=== PATIENT | female | born 1990 | race Caucasian/White ===

== ENCOUNTER 2024-01-13 16:15 | Observation (INO) | payer OTHER ==
[2024-01-13] MEDS: LACTATED RINGERS 1,000 ML IV SCH ×3 (16:51→19:45)
[2024-01-13 17:19] LABS: Basophils % (A) 0 %; Eosinophils # (A) 0.1 k/uL (0-0.7); Eosinophils % (A) 2 %; HCT 37.6 % (34.0-46.0); HGB 13.1 gm/dL (11.4-16.0); Lymphocytes # (A) 1.4 k/uL (1.0-4.8); Lymphocytes % (A) 17 %; MCH 32.6 pg (25.0-35.0); MCV 93.2 fL (80.0-100.0); Mean Platelet Volume 7.2; Monocytes # (A) 0.3 k/uL (0-1.0); Monocytes % (A) 3 %; Neutrophils # (A) 6.4 k/uL (1.3-7.7); Neutrophils % (A) 77 %; Platelet Count 236 k/uL (150-450); RBC 4.03 m/uL (3.80-5.40); RDW 13.2 % (11.5-15.5); WBC 8.3 k/uL (3.8-10.6)
[2024-01-13] MEDS: ONDANSETRON 4 MG/2 ML VIAL IVP STA (17:33)
[2024-01-13 17:41] LABS: ALT 102 U/L (4-34); AST 41 U/L (14-36); African American GFR (CKD) >90 (>60 ml/min/1.73 sqM); Albumin 4.4 g/dL (3.5-5.0); Alkaline Phosphatase 101 U/L (38-126); Anion Gap 10 mmol/L; Blood Urea Nitrogen 10 mg/dL (7-17); Calcium 9.8 mg/dL (8.4-10.2); Carbon Dioxide 20 mmol/L (22-30); Chloride 108 mmol/L (98-107); Glucose 88 mg/dL (74-99); Non-African American GFR(CKD) >90 (>60 ml/min/1.73 sqM); Potassium 4.1 mmol/L (3.5-5.1); Sodium 138 mmol/L (137-145); Total Bilirubin 0.8 mg/dL (0.2-1.3); Total Protein 7.2 g/dL (6.3-8.2)
[2024-01-13 19:06] LABS: Appearance,Urine Clear (Clear); Bilirubin,Urine Negative (Negative); Blood,Urine Negative (Negative); Color,Urine Colorless; Glucose,Urine (UA) Negative (Negative); Ketones,Urine 2+ (Negative); Leukocyte Esterase,Urine Negative (Negative); Nitrite,Urine Negative (Negative); PH, Urine 6.5 (5.0-8.0); Protein,Urine Negative (Negative); Specific Gravity,Urine 1.007 (1.001-1.035); Urobilinogen,Urine <2.0 mg/dL (<2.0)
[2024-01-13] MEDS ORDERED: PROMETHAZINE SUPPOSITORY 12.5 MG SUPP RECTAL PRN (19:39)
[2024-01-13] MEDS: diphenhydrAMINE 50 MG/ML 1 ML VIAL IVP PRN (20:45)
[2024-01-14] MEDS: ONDANSETRON 4 MG/2 ML VIAL IVP PRN (03:12)
[2024-01-14 07:26] LABS: ALT 69 U/L (4-34); AST 29 U/L (14-36)
[2024-01-14 08:26] VITALS: RESP 14; TEMP 98
--- NOTE | 2024-01-14 12:13 | P.HPOB ---
History of Present Illness H&P Date: 01/14/24 Chief Complaint: IUP 10 weeks, n/v of 33 yo at 10 weeks of gestation. She was seen in the office yesterday for her new OB appointment. Upon questioning she noted multiple days of vomiting and multiple visits to [facility] for fluid hydration. Patient states she typically receives a couple bags of fluids which will last her a couple days and then she represents for fluid hydration secondary to increased nausea and vomiting. Vital signs were stable in the office. Given extensive nausea and vomiting patient was sent to OB triage for IV hydration and lab workup. Review of Systems Constitutional: Reports fatigue, Denies chills, Denies fever Ears, nose, mouth and throat: Denies headache Cardiovascular: Denies leg edema Respiratory: Denies dyspnea Gastrointestinal: Denies constipation, Denies diarrhea, Denies nausea, Denies vomiting Genitourinary: Reports Past Medical History History of Any Multi-Drug Resistant Organisms: None Reported Past Surgical History: Cholecystectomy, Orthopedic Surgery, Tonsillectomy Additional Past Surgical History / Comment(s): 1999 and 2000 right hip surgery - pins placed in 1999, pins removed in 2000. 2008 cholecystectomy Past Anesthesia/Blood Transfusion Reactions: No Reported Reaction Past Psychological History: Anxiety, Depression Smoking Status: Never smoker Past Alcohol Use History: None Reported Past Drug Use History: None Reported - Past Family History Mother Family Medical History: Hypertension Medications and Allergies Home Medications Medication Instructions Recorded Confirmed Type No Known Home Medications 01/13/24 01/13/24 History Allergies Allergy/AdvReac Type Severity Reaction Status Date / Time No Known Allergies Allergy Verified 01/13/24 16:40 Exam Osteopathic Statement: *. No significant issues noted on an osteopathic structural exam other than those noted in the History and Physical/Consult. Vital Signs Temp Pulse Pulse Resp BP BP Pulse Ox 01/14/24 08:00 98.0 F 71 14 122/75 01/14/24 03:07 97.9 F 70 16 113/70 98 01/14/24 00:00 97.8 F 76 16 104/65 98 01/13/24 20:00 98.2 F 90 16 132/82 98 01/13/24 16:40 97 F L 75 16 115/69 99 Intake and Output 01/13/24 01/14/24 01/14/24 22:59 06:59 14:59 Other: # Voids 1 1 Weight 83.915 kg Targeted physical exam is performed, ill-appearing female in no acute distress, breathing is nonlabored, heart has a regular rate and rhythm, abdomen is soft and nontender heart tones were obtained in the office today Results Result Diagrams: 01/13/24 16:55 01/13/24 16:55 Abnormal Lab Results - Last 24 Hours (Table) 01/13/24 01/13/24 01/14/24 Range/Units 16:55 18:50 07:02 Chloride 108 H (98-107) mmol/L Carbon Dioxide 20 L (22-30) mmol/L Creatinine 0.46 L (0.52-1.04) mg/dL AST 41 H (14-36) U/L ALT 102 H 69 H (4-34) U/L Urine Ketones 2+ H (Negative) Assessment and Plan (1) 10 weeks gestation of Current Visit: Yes Status: Acute Code(s): Z3A.10 - 10 WEEKS GESTATION OF SNOMED Code(s): 53652816 (2) Nausea & vomiting Current Visit: Yes Status: Acute Code(s): R11.2 - NAUSEA WITH VOMITING, UNSPECIFIED SNOMED Code(s): 88247318 Plan: 33-year-old G1, P0 at 10 weeks of gestation that presented from the office for nausea and vomiting of . Patient is started on IV hydration, urine and blood work is ordered. Patient has been taking Zofran as needed, Phenergan suppositories are encou raged. Will monitor and assess need for observation and fluid hydration through the night.
--- NOTE | 2024-01-14 12:13 | P.DS ---
Providers Date of admission: 01/13/24 19:33 Expected date of discharge: 01/14/24 Attending physician: Clair Barksdale Primary care physician: Stated None - Discharge Diagnosis(es) (1) 10 weeks gestation of Current Visit: Yes Status: Acute (2) Nausea & vomiting Current Visit: Yes Status: Acute Hospital Course: 33-year-old G1, P0 at approximately 10 weeks of gestation presented from the office for increased nausea and vomiting. Patient was unable to keep anything down. Patient has been seen multiple times in [place] [facility] for IV hydration. Patient states it helps for a few days and then she ends up going back for more hydration. Patient states Zofran is working reasonably but she will have breakthrough nausea and vomiting. Patient was hydrated through the night and is feeling better this morning. Patient is tolerating toast with Zofran. Patient states Phenergan suppositories are not helping as well as the Zofran. Patient's labs initially showed elevated liver function test which have since normalized this morning. Patient feels comfortable going home with oral Zofran scheduled 3 times daily. Patient has follow-up appointment next week in the office. Patient Condition at Discharge: Good Plan - Discharge Summary New Discharge Prescriptions: No Action No Known Home Medications Discharge Medication List No Known Home Medications 01/13/24 [History] Follow up Appointment(s)/Referral(s): Clair Barksdale DO [Doctor of Osteopathic Medicine] - 1 Week Activity/Diet/Wound Care/Special Instructions: Patient is encouraged to continue her Zofran 3 times a day. Brat diet bland meals are encouraged. Increase hydration as tolerated. Discharge Disposition: HOME SELF-CARE
--- NOTE | 2024-01-15 10:09 | P.MSEPDOC ---
Presenting Problems - Arrival Data Date of Arrival on Unit: 01/13/24 Time of Arrival on Unit: 16:15 Mode of Transport: Wheelchair - Complaint OB-Reason for Admission/Chief Complaint: Hyperemesis Medical History - Information : 4 Para: 0 Term: 0 : 0 Abortions: Spontaneous or Elective: 3 Number of Living Children: 0 - Gestational Age Gestational Age by AVNIASH (wks/days): 10 Weeks and 3 Days Review of Systems - Review of Systems Constitutional: No problems Breast: No problems ENT: No problems Cardiovascular: No problems Respiratory: No problems Gastrointestinal: No problems Genitourinary: No problems Musculoskeletal: No problems Neurological: Dizziness Skin: No problems Vital Signs - Temperature Temperature: 98.0 F Temperature Source: Oral - Pulse Right Apical Pulse Rate: 75 Pulse Assessment Method: Automatic Cuff Pulse Oximetery Pulse Rate: 71 Pulse Assessment Method: Automatic Cuff - Respirations Respiratory Rate: 14 Oxygen Delivery Method: Room Air - Blood Pressure Right Arm Sitting Blood Pressure: 115/69 Blood Pressure Mean: 84 Blood Pressure Source: Automatic Cuff Left Arm Blood Pressure: 122/75 Blood Pressure Mean: 90 Blood Pressure Source: Automatic Cuff Physician Notification - Physician Notified Physician Notified Date: 01/13/24 Physician Notified Time: 16:15 Physician: Clair Barksdale New Order Received: Yes - Notification Comment Comment: written orders for iv hydration, cbc, cmp, ua Maternal Triage Index - Maternal Triage Index Presenting for scheduled procedure w/no complaint: No - Stat/Priority 1 Stat Priority 1: No - Urgent/Priority 2 Urgent Priority 2: Yes Provider Notified: Clair Barksdale Provider Notified Time: 16:15 Criteria Met for Priority 2: 10.3 week hyperemesis sent with script for iv hydration Disposition - Disposition OB Disposition: Triage Discharge Date: 01/14/24 Discharge Time: 12:30 I agree with the RN Medical Screening Exam: Yes Case reviewed; plan agreed upon as documented in EMR&OBIX.: Yes Diagnosis: RELATED CONDITIONS, UNSPECIFIED, FIRST TRIMESTER
[2024-01-15 10:29] VITALS: BP 115/69; PULSE 75
== END 2024-01-14 12:47 | disposition home or self-care (01) ==
LOC: FBPOP 16:15 → 4FBP 19:33
PROVIDERS: ADMIT Obstetrics & Gynecology Obstetrics; ATTEND Obstetrics & Gynecology Obstetrics
DX: O21.9 Vomiting of pregnancy, unspecified (principal); Z3A.10 10 weeks gestation of pregnancy; R74.01 Elevation of levels of liver transaminase levels
CPT/HCPCS: 96376; 96361; 96374; 96375; 36415; 80053; 84450; 84460; 85025; 81003; G0378 ×2; G0379; J1200; J2405 ×2

== ENCOUNTER 2024-06-28 11:12 | Outpatient (CLI) | payer OTHER | END 2024-06-28 12:15 | disposition home or self-care (01) | LOC: FBPOP 11:12 | PROVIDERS: ATTEND Obstetrics & Gynecology Obstetrics | CPT/HCPCS: 59025; 99213 ==

== ENCOUNTER 2024-07-15 13:50 | Observation (INO) | payer OTHER ==
[2024-07-15] MEDS ORDERED: LABETALOL 100 MG TAB ONE ×2 (16:38→23:59)
[2024-07-15] MEDS ORDERED: diphenhydrAMINE 50 MG CAP ONE (20:44)
[2024-07-16] MEDS ORDERED: diphenhydrAMINE 50 MG CAP ONE (03:47)
[2024-07-16] MEDS ORDERED: CALCIUM CARBONATE 500 MG CHEWABLE PO ONE (03:47)
[2024-07-16] MEDS ORDERED: LABETALOL 100 MG TAB ONE (08:51)
== END 2024-07-16 11:15 | disposition home or self-care (01) ==
LOC: INTOOBSV 13:50 → 4FBP 13:50 → UNDODISIN 07-16 11:20
PROVIDERS: ADMIT Obstetrics & Gynecology Obstetrics; ATTEND Obstetrics & Gynecology Obstetrics
CPT/HCPCS: 59025; 99215; 99285

== ENCOUNTER 2024-07-22 06:00 | Inpatient (IN) | payer OTHER ==
[2024-07-22] MEDS ORDERED: TERBUTALINE 1 MG/ML VIAL SQ PRN (06:36)
[2024-07-22] MEDS ORDERED: OXYTOCIN 10 UNIT/ML 1 ML VIAL IM PRN (06:36)
[2024-07-22] MEDS ORDERED: CARBOPROST TROMETHAMINE 250 MCG/ML 1 ML AMP IM PRN (06:36)
[2024-07-22] MEDS ORDERED: miSOPROStoL 200 MCG TAB RECTAL PRN (06:36)
[2024-07-22] MEDS ORDERED: miSOPROStoL 200 MCG TAB PO PRN (06:36)
[2024-07-22] MEDS ORDERED: TRANEXAMIC 1,000 MG/100ML-NACL 1,000 MG in EMPTY BAG 1 BAG IV PRN (06:36)
[2024-07-22] MEDS ORDERED: LIDOCAINE 0.5% (PF) 5 MG/ML (50 ML SDV) SQ PRN (06:36)
[2024-07-22] MEDS ORDERED: METHYLERGONOVINE 0.2 MG/ML 1 ML AMP IM PRN (06:36)
[2024-07-22 06:51] LABS: Basophils % (A) 0 %; Eosinophils # (A) 0.2 k/uL (0-0.7); Eosinophils % (A) 2 %; HCT 31.2 % (34.0-46.0); HGB 10.5 gm/dL (11.4-16.0); Hypochromasia Slight; Lymphocytes # (A) 1.7 k/uL (1.0-4.8); Lymphocytes % (A) 16 %; MCHC 33.6 g/dL (31.0-37.0); MCV 95.4 fL (80.0-100.0); Mean Platelet Volume 7.2; Monocytes # (A) 0.5 k/uL (0-1.0); Monocytes % (A) 5 %; Neutrophils # (A) 7.8 k/uL (1.3-7.7); Neutrophils % (A) 74 %; Platelet Count 290 k/uL (150-450); Poikilocytosis Slight; RBC 3.27 m/uL (3.80-5.40); RDW 15.6 % (11.5-15.5); WBC 10.5 k/uL (3.8-10.6)
[2024-07-22] MEDS: LACTATED RINGERS 1,000 ML IV SCH (06:58)
[2024-07-22] MEDS: OXYTOCIN 30 UNITS/500 ML NS 30 UNIT in SALINE 1 500ML.BAG IV SCH (07:29)
[2024-07-22] MEDS ORDERED: NALBUPHINE 10 MG/ML (10 ML MDV) IV PRN (08:15)
[2024-07-22] MEDS ORDERED: fentaNYL (PF) 50 MCG/ML 5 ML AMP ONE (10:46)
[2024-07-22] MEDS ORDERED: ROPIVACAINE 5 MG/ML 30 ML VIAL ONE (10:46)
[2024-07-22] MEDS ORDERED: SODIUM CHLORIDE 0.9% 250 ML BAG ONE (10:46)
--- NOTE | 2024-07-22 14:31 | P.PROBDLV ---
Vaginal Delivery Note - . Vaginal Delivery Note: Findings viable female delivered in occiput posterior presentation at 1411, weight of 6 pounds 7.4 ounces. 34-year-old 4 para 0-0-3-0 that presented to labor and delivery at 37- 2/7 weeks for induction of labor secondary to gestational hypertension and in creasing urticaria. Patient is using labetalol to 100 mg twice daily for blood pressure control. Patient was admitted and Pitocin induction of labor was begun. Patient underwent amniotomy and clear fluid was obtained. Patient made progress to 3 cm and did request epidural. Epidural was placed without difficulty by the anesthesia department. Patient made good progress toward complete dilation. Once patient was noted to be completely dilated she began pushing and had a normal spontaneous vaginal delivery of a viable female in occiput posterior presentation at 1411, weight of 6 pounds 7.4 ounces, Apgars of 9 and 10 at 1 and 5 minutes respectively. After 2-minute delay the umbilical cord was doubly clamped and cut and the placenta was delivered spontaneously intact with a three-vessel cord being noted. Inspection the patient's vaginal vault secondary midline laceration was appreciated. The laceration was instilled with lidocaine and repaired in the usual fashion with 3-0 Rapide. Uterus was noted to be firm and below the umbilicus. Laceration was inspected and hemostasis was noted. The bladder was drained for approximately 100 cc of clear yellow urine after delivery. Rectal exam was completed and normal rectal mucosa with no defects was appreciated. All counts found to be correct x 2. Patient and infant tolerated delivery well and are resting comfortably.
--- NOTE | 2024-07-22 14:31 | P.HPOB ---
History of Present Illness H&P Date: 07/22/24 Chief Complaint: IUP @ 37 2/7 weeks, gestational htn 34 yo at 37 3/7 weeks that presents for inuction of labor secondary to gestational htn, on labetalol. She has been struggling with urticaria and presented to labor and delivery last week. LFTs were normal along with pre e labs, but her BP remain ed elevated and she was placed on labetalol. Bp hve been improved on po labetalol. she is noting good FM, occ ctx. she is struggling with high anxiety, regarding delivery. On blood work blood type A pos, rubella non immune, HBSag neg, HIV neg, RPR neg, GBS neg. Review of Systems Constitutional: Denies chills, Denies fatigue, Denies fever Ears, nose, mouth and throat: Denies headache Cardiovascular: Reports edema Respiratory: Denies dyspnea Gastrointestinal: Reports nausea, Reports vomiting Genitourinary: Reports Integumentary: Reports pruritus Past Medical History History of Any Multi-Drug Resistant Organisms: None Reported Past Surgical History: Cholecystectomy, Orthopedic Surgery, Tonsillectomy Additional Past Surgical History / Comment(s): 1999 and 2000 right hip surgery - pins placed in 1999, pins removed in 2000. 2008 cholecystectomy Past Anesthesia/Blood Transfusion Reactions: No Reported Reaction Past Psychological History: Anxiety, Depression Smoking Status: Never smoker Past Alcohol Use History: None Reported Past Drug Use History: None Reported - Past Family History Mother Family Medical History: Hypertension Medications and Allergies Home Medications Medication Instructions Recorded Confirmed Type Labetalol [Trandate] 1 tab PO BID 07/22/24 07/22/24 History Ondansetron [Zofran] 4 mg PO Q12HR PRN 07/22/24 07/22/24 History Scopolamine [Scopolamine 1 MG/72 1 patch TRANSDERM DAILY 07/22/24 07/22/24 History HR patch] ursodioL [Ursodiol] 300 mg PO DAILY 07/22/24 07/22/24 History Allergies Allergy/AdvReac Type Severity Reaction Status Date / Time No Known Allergies Allergy Verified 01/13/24 16:40 Exam Osteopathic Statement: *. No significant issues noted on an osteopathic structural exam other than those noted in the History and Physical/Consult. Intake and Output 07/21/24 07/22/24 07/22/24 22:59 06:59 14:59 Other: Weight 86.183 kg - OBG Physical Exam Abdomen: gravid Cervix: 1-2/90/-2 amniotomy preformed and clear fluid is obtained Results Result Diagrams: 07/22/24 06:40 Abnormal Lab Results - Last 24 Hours (Table) 07/22/24 Range/Units 06:40 RBC 3.27 L (3.80-5.40) m/uL Hgb 10.5 L (11.4-16.0) gm/dL Hct 31.2 L (34.0-46.0) % RDW 15.6 H (11.5-15.5) % Neutrophils # 7.8 H (1.3-7.7) k/uL Assessment and Plan (1) Term Current Visit: Yes Status: Acute Code(s): Z34.90 - ENCNTR FOR SUPRVSN OF NORMAL , UNSP, UNSP TRIMESTER SNOMED Code(s): 86352664 (2) Gestational HTN Current Visit: Yes Status: Acute Code(s): O13.9 - GESTATIONAL HTN W/O SIGNIFICANT PROTEINURIA, UNSP TRIMESTER SNOMED Code(s): 49963854 (3) Urticaria Current Visit: Yes Status: Acute Code(s): L50.9 - URTICARIA, UNSPECIFIED SNOMED Code(s): 649889606 Plan: at 37 2/7 weeks that presents for induction of labor secondary to gestational htn. BP well controlled on labetalol. Patient is admitted to labor and delivery and pitocin induction of labor is begun. options for analgesia are reviewed. she will consider.
[2024-07-22] MEDS ORDERED: SIMETHICONE 80 MG CHEWABLE PO PRN (15:55)
[2024-07-22] MEDS ORDERED: HYDROCORTISONE 2.5% RECTAL CREAM 30 GM TUBE RECTAL PRN (15:55)
[2024-07-22] MEDS ORDERED: diphenhydrAMINE 25 MG CAP PO PRN (15:55)
[2024-07-22] MEDS ORDERED: diphenhydrAMINE 50 MG CAP PO PRN (15:55)
[2024-07-22] MEDS ORDERED: BENZOCAINE/MENTHOL SPRAY 1 GM/SPRAY AEROSOL TOPICAL PRN (15:55)
[2024-07-22] MEDS ORDERED: ZOLPIDEM 5 MG TAB PO PRN (15:55)
[2024-07-22] MEDS: IBUPROFEN 600 MG TAB PO SCH (16:49)
[2024-07-23] MEDS: SENNOSIDES-DOCUSATE SODIUM 1 EACH TAB PO SCH (01:12)
[2024-07-23] MEDS: ACETAMINOPHEN TAB 325 MG TAB PO PRN (04:54)
[2024-07-23 07:55] LABS: Basophils % (A) 0 %; Eosinophils # (A) 0.1 k/uL (0-0.7); Eosinophils % (A) 1 %; HCT 28.1 % (34.0-46.0); HGB 9.4 gm/dL (11.4-16.0); Hypochromasia Slight; Lymphocytes # (A) 1.7 k/uL (1.0-4.8); Lymphocytes % (A) 12 %; MCH 31.9 pg (25.0-35.0); MCHC 33.5 g/dL (31.0-37.0); MCV 95.4 fL (80.0-100.0); Mean Platelet Volume 7.5; Monocytes # (A) 0.6 k/uL (0-1.0); Monocytes % (A) 4 %; Neutrophils # (A) 11.2 k/uL (1.3-7.7); Neutrophils % (A) 81 %; Platelet Count 289 k/uL (150-450); Poikilocytosis Slight; RBC 2.95 m/uL (3.80-5.40); RDW 15.6 % (11.5-15.5); WBC 13.7 k/uL (3.8-10.6)
[2024-07-23 08:16] VITALS: RESP 18
--- NOTE | 2024-07-23 10:38 | P.PNOBGVD ---
Subjective - Subjective Principal diagnosis: day #1 Interval history: Patient is doing okay . She is noting pain with walking, she states the pain is in her bilateral groin right greater than left. She is able to ambulate with discomfort. She is voiding without difficulty. Her lochia is noted to be minimal to moderate. She is bottlefeeding. She does have a history of surgery on her right hip and that is the side that is worse for pain with ambulation Patient reports: Reports appetite normal, Reports voiding normally, Reports pain well controlled Bim: doing well Objective - Latest Vital Signs Latest vital signs: Vital Signs Temp Pulse Resp BP Pulse Ox 07/23/24 08:00 98.3 F 91 18 139/82 98 07/23/24 00:00 97.7 F 95 16 117/75 97 07/22/24 20:00 98.3 F 108 H 17 134/76 97 07/22/24 16:20 97.8 F 109 H 18 130/70 07/22/24 16:05 114 H 18 129/77 07/22/24 15:50 106 H 18 134/86 07/22/24 15:35 108 H 18 135/84 07/22/24 15:20 109 H 18 133/79 07/22/24 15:05 108 H 18 143/82 07/22/24 14:50 120 H 16 132/88 07/22/24 14:35 108 H 16 132/88 07/22/24 14:20 98.1 F 111 H 16 120/83 100 Intake and Output 07/22/24 07/23/24 07/23/24 22:59 06:59 14:59 Output Total 280 Balance -280 Output: Output, Quantitative 280 Blood Loss Other: # Voids 1 1 - Exam Extremities: Present: normal, edema Abdomen: Present: normal appearance, soft Uterus: Present: normal, firm - Labs Labs: Abnormal Lab Results - Last 24 Hours (Table) 07/23/24 Range/Units 07:20 WBC 13.7 H (3.8-10.6) k/uL RBC 2.95 L (3.80-5.40) m/uL Hgb 9.4 L (11.4-16.0) gm/dL Hct 28.1 L (34.0-46.0) % RDW 15.6 H (11.5-15.5) % Neutrophils # 11.2 H (1.3-7.7) k/uL Assessment and Plan (1) Term Current Visit: Yes Status: Acute Code(s): Z34.90 - ENCNTR FOR SUPRVSN OF NORMAL , UNSP, UNSP TRIMESTER SNOMED Code(s): 44584482 (2) Gestational HTN Current Visit: Yes Status: Acute Code(s): O13.9 - GESTATIONAL HTN W/O SIGNIFICANT PROTEINURIA, UNSP TRIMESTER SNOMED Code(s): 69836076 (3) Urticaria Current Visit: Yes Status: Acute Code(s): L50.9 - URTICARIA, UNSPECIFIED SNOMED Code(s): 651016128 (4) Status post normal vaginal delivery Current Visit: Yes Status: Acute Code(s): WOP2640 - SNOMED Code(s): 687785114 (5) Occiput posterior presentation of fetus Current Visit: Yes Status: Acute Code(s): O64.0XX0 - OBSTRUCTED LABOR DUE TO INCMPL ROTATION OF HEAD, UNSP SNOMED Code(s): 59344321 Plan: Overall patient is doing well . Will change pain medications given her increase in hip pain. If she does well overnight anticipate discharge home tomorrow.
[2024-07-23] MEDS: CYCLOBENZAPRINE 10 MG TAB PO SCH (11:01)
[2024-07-23] MEDS: HYDROcodone/APAP 5-325MG 1 EACH TAB PO PRN ×2 (12:13→17:04)
--- NOTE | 2024-07-23 17:44 | XR ---
EXAMINATION TYPE: XR Hip RT and AP Pelvis DATE OF EXAM: 07/23/2024 5:19 PM CLINICAL INDICATION: Female, 34 years old with history of Right hip pain following delivery of ; [facility] COMPARISON: None. TECHNIQUE: XR Hip RT and AP Pelvis; hip was examined in the frontal and lateral projections and a AP pelvis. FINDINGS: No evidence for acute process, joint dislocation or significant soft tissue swelling. Severe degeneration change and deformity of the bilateral femoral neck/head. Mild osteophyte reformat ion the superior acetabulum present bilaterally. IMPRESSION: 1. No acute process. 2. Cam deformities of the bilateral femurs with mild degeneration.
[2024-07-24 08:59] VITALS: BP 144/90; PULSE 94; TEMP 97.7
--- NOTE | 2024-07-24 09:30 | P.CNOR ---
History of Present Illness - [facility] Consult date: 07/24/24 Consult reason: joint pain History of present illness: Patient is a very pleasant 34-year-old female who is having severe right hip pain. She was admitted to the hospital for delivery of her first child and underwent an uncomplicated vaginal delivery 2 days ago. The mother and the baby are otherwise doing well. The patient has history of right hip issues. When she was 10 years old she had a slipped capital femoral epiphysis and underwent surgical intervention for this. 1 year later she had the hardware removed from her right hip. Over the past 24 years she has been doing fairly well with this she weightbears as tolerated and does regular activities. She has certain positions that give her issues as she is not able to ride a horse or a JetSki. She has some times when she tries to internally rotate her hip that she has soreness and pain but this is not usually long-lasting. During delivery she had a spinal epidural and underwent prolonged delivery. Once the spinal anesthetic wore off she had significant pain at her right hip. The pain is circumferential around her hip primarily to the anterior aspect and laterally. She has pain whenever bearing weight. She has pain whenever trying to rotate and flex her hip. She denies any numbness tingling. She denies any weakness. She denies any other recent problems. 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 Some history of right hip soreness with not requiring medication or limitations other than certain activities such as jet skiing or horseback riding Past Medical History Additional Past Medical History / Comment(s): Right hip slipped capital femoral epiphysis with surgery and subsequent removal of the hardware in year 1999. Some history of anxiety History of Any Multi-Drug Resistant Organisms: None Reported Past Surgical History: Cholecystectomy, Orthopedic Surgery, Tonsillectomy Additional Past Surgical History / Comment(s): 1999 and 2000 right hip surgery - pins placed in 1999, pins removed in 2000. 2008 cholecystectomy Past Anesthesia/Blood Transfusion Reactions: No Reported Reaction Past Psychological History: Anxiety, Depression Smoking Status: Never smoker Past Alcohol Use History: None Reported Past Drug Use History: None Reported - Past Family History Mother History Unknown: Yes Family Medical History: Hypertension Medications and Allergies Home Medications Medication Instructions Recorded Confirmed Type Labetalol [Trandate] 1 tab PO BID 07/22/24 07/22/24 History Ondansetron [Zofran] 4 mg PO Q12HR PRN 07/22/24 07/22/24 History Scopolamine [Scopolamine 1 MG/72 1 patch TRANSDERM DAILY 07/22/24 07/22/24 History HR patch] ursodioL [Ursodiol] 300 mg PO DAILY 07/22/24 07/22/24 History Cyclobenzaprine [Flexeril] 10 mg PO TID PRN #30 tab 07/24/24 Rx HYDROcodone/APAP 5-325MG [[place] 1 - 2 tab PO Q6HR PRN #56 tab 07/24/24 Rx 5-325] predniSONE 10 mg PO DAILY 12 Days #24 tab 07/24/24 Rx Allergies Allergy/AdvReac Type Severity Reaction Status Date / Time No Known Allergies Allergy Verified 01/13/24 16:40 Physical Examination Osteopathic Statement: *. No significant issues noted on an osteopathic structural exam other than those noted in the History and Physical/Consult. - Hip right Gait: antalgic, other Tenderness with palpation: none Pain with motion: internal rotation and hip flexion (In her right hip she has well-healed incision. She has pain with flexion but is she is able to flex to 90 degrees. She is able to lift her leg up off the bed independently but has pain in her hip with this. She has pain with internal rotation. There is no significant pain with external rotation ), other (She can move her hip into external rotation slowly without pain but has pain with internal rotation beyond neutral. She has sustained dorsiflexion plantarflexion EHL intact. Distal neurovascular status intact. Calves and thighs soft nontender) Results - Labs Labs: H & H 07/22/24 07/23/24 Range/Units 06:40 07:20 Hgb 10.5 L 9.4 L (11.4-16.0) gm/dL Hct 31.2 L 28.1 L (34.0-46.0) % Result Diagrams: 07/23/24 07:20 - Diagnostic results Hip x-ray: report reviewed, image reviewed (Imaging of the pelvis and right hip show chronic dysplasia of the right femoral head. There is flattening with osteophytic spurring and decreased joint space. There is evidence of prior surgery. 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 She had somewhat of a prolonged delivery and had subsequent acute right hip pain. The patient has history of right hip slipped capital femoral epiphysis and has been developing chronic dysplasia and arthritic change at her right hip over the years. She has had some limitations in her overall motion and certain activities but otherwise functions quite well. Certainly she had exacerbation of her right hip due to her positioning during her delivery while under spinal anesthetic. The patient does not appear to have any acute fracture or dislocation or process at her right hip from a bony signs but certainly has an exacerbation of her arthritic change. It is okay for the patient to weight-bear as tolerated on her right hip and lower extremity. She has been having some improvement over the past 2 days but is still requiring pain medication. We will supply her with a short course of pain medication and muscle relaxer. I think that she can do well with a short course of oral steroid as well. She is not breast-feeding and given the sev erity of her pain I think a short course of steroid may help increase her mobility most quickly. I will go ahead and prescribe a pain medication for this week as well as a muscle relaxer and hopefully she will be able to wean from those We will also prescribe a short course of prednisone to be taken 30 mg daily for 4 days and then 20 mg daily for 4 days, and then 10 mg daily for 4 days and then stop. She should take this with food. We will plan to follow her up in the office in the next 2 weeks for recheck evaluation and further treatment options as needed. Answered her questions best my ability limb she can understand she is agreeable to plan. Thank you for allowing us participate.
--- NOTE | 2024-07-24 11:43 | P.DS ---
Providers Date of admission: 07/22/24 06:06 Expected date of discharge: 07/24/24 Attending physician: Clair Barksdale Consults: 07/23/24 16:05 Consult Physician Routine Consulting Provider: Karen Gilliland Consult Reason/Comments: excessive pain in right hip following . HX surgery on hip in 1999. Do you want consulting provider notified?: Yes Primary care physician: Stated None - Discharge Diagnosis(es) (1) Term Current Visit: Yes Status: Acute (2) Gestational HTN Current Visit: Yes Status: Acute (3) Urticaria Current Visit: Yes Status: Acute (4) Status post normal vaginal delivery Current Visit: Yes Status: Acute (5) Occiput posterior presentation of fetus Current Visit: Yes Status: Acute Hospital Course: 34-year-old 4 now para 1-0-3-1 that presented to labor and delivery on 07/22 for induction of labor secondary to gestational hypertension at 37-2/7 weeks. Patient was admitted and Pitocin induction of labor was begun. Patient underwent amniotomy and clear fluid was obtained. Patient progressed through labor and became uncomfortable requesting epidural. Epidural was placed without difficulty by the anesthesia department. Patient progressed to complete began pushing and had a normal spontaneous vaginal delivery of a viable female at 1411, weight of 6 pounds 7.4 ounces, Apgars of 9 and 10 at 1 and 5 minutes respectively. Patient did sustain a second-degree midline laceration with delivery. This laceration was repaired with 3-0 Rapide. Patient's course has been complicated by bilateral hip pain. Orthopedics was consulted, she was begun on oral steroids. Patient is doing okay today, lochia is minimal to moderate. She is bottlefeeding. Patient Condition at Discharge: Good Plan - Discharge Summary New Discharge Prescriptions: New Cyclobenzaprine [Flexeril] 10 mg PO TID PRN #30 tab PRN Reason: Spasms HYDROcodone/APAP 5-325MG [[place] 5-325] 1 - 2 tab PO Q6HR PRN #56 tab PRN Reason: Pain predniSONE 10 mg PO DAILY 12 Days #24 tab No Action Scopolamine [Scopolamine 1 MG/72 HR patch] 1 patch TRANSDERM DAILY Labetalol [Trandate] 1 tab PO BID Ondansetron [Zofran] 4 mg PO Q12HR PRN PRN Reason: Nausea ursodioL [Ursodiol] 300 mg PO DAILY Discharge Medication List Labetalol [Trandate] 1 tab PO BID 07/22/24 [History] Ondansetron [Zofran] 4 mg PO Q12HR PRN 07/22/24 [History] Scopolamine [Scopolamine 1 MG/72 HR patch] 1 patch TRANSDERM DAILY 07/22/24 [H istory] ursodioL [Ursodiol] 300 mg PO DAILY 07/22/24 [History] Cyclobenzaprine [Flexeril] 10 mg PO TID PRN #30 tab 07/24/24 [Rx] HYDROcodone/APAP 5-325MG [[place] 5-325] 1 - 2 tab PO Q6HR PRN #56 tab 07/24/24 [Rx] predniSONE 10 mg PO DAILY 12 Days #24 tab 07/24/24 [Rx] Follow up Appointment(s)/Referral(s): Clair Barksdale DO [Doctor of Osteopathic Medicine] - 09/06/24 1:00 pm Shlomo Chan MD [Medical Doctor] - 2 Weeks Patient Instructions/Handouts: Vaginal Delivery (GEN), Vaginal Delivery (DC) Activity/Diet/Wound Care/Special Instructions: From a orthopedic standpoint, patient is okay to weight-bear as tolerated on the right lower extremity and continue activities as tolerated on right lower extremity From OB standpoint, no tub baths or intercourse for 6 weeks . [id number] ibuprofen 600 mg or 3 tablets every 6 hours as needed for uterine cramping. Discharge Disposition: HOME SELF-CARE
== END 2024-07-24 13:15 | disposition home or self-care (01) | DRG 807 ==
LOC: 4FBP 06:06
PROVIDERS: ADMIT Obstetrics & Gynecology Obstetrics; ATTEND Obstetrics & Gynecology Obstetrics
PROC: 10E0XZZ Delivery of Products of Conception, External Approach (ICD-10-PCS; principal; 2024-07-22)
PROC: 0KQM0ZZ Repair Perineum Muscle, Open Approach (ICD-10-PCS; 2024-07-22)
PROC: 10907ZC Drainage of Amniotic Fluid, Therapeutic from Products of Conception, Via Natural or Artificial Opening (ICD-10-PCS; 2024-07-22)
PROC: 3E033VJ Introduction of Other Hormone into Peripheral Vein, Percutaneous Approach (ICD-10-PCS; 2024-07-22)
DX: O13.4 Gestational [pregnancy-induced] hypertension without significant proteinuria, complicating childbirth (principal); Z37.0 Single live birth; M19.90 Unspecified osteoarthritis, unspecified site; O70.1 Second degree perineal laceration during delivery; F41.9 Anxiety disorder, unspecified; F32.A Depression, unspecified; O99.344 Other mental disorders complicating childbirth; O99.72 Diseases of the skin and subcutaneous tissue complicating childbirth; L50.9 Urticaria, unspecified; Z3A.37 37 weeks gestation of pregnancy; Z90.49 Acquired absence of other specified parts of digestive tract